=== PATIENT | female | born 1965 | race Caucasian/White ===

== ENCOUNTER 2018-05-06 12:26 | Day surgery (SDC) | payer OTHER ==
[2018-05-06] MEDS ORDERED: MIDAZOLAM 1 MG/ML 2 ML INJ ×2 (14:35)
[2018-05-06] MEDS ORDERED: FENTAnyl 50 MCG/ML VIAL (14:36)
== END 2018-05-06 15:15 | disposition home or self-care (01) ==
LOC: GIL 12:26
DX: Z12.11 Encounter for screening for malignant neoplasm of colon (principal); D12.6 Benign neoplasm of colon, unspecified; K64.8 Other hemorrhoids
CPT/HCPCS: 45385; 88305